=== PATIENT | female | born 1980 | race African-American/Black ===

== ENCOUNTER 2017-05-31 05:06 | Day surgery (SDC) | payer OTHER ==
[~2017-05-31] VITALS: Ht 172.7 cm; Wt 135.6 kg
--- NOTE | ~2017-05-31 | O ---
[facility] [place] [address] OPERATIVE REPORT Name: ANABELLA MATAMOROS Room #: DEP [facility] M.R.#: [id number] Admission: 05/31/17 Attend Phys: Raymon Huizar MD, F Discharge: 06/01/17 Date of : 80 Report #: [id number] THIS REPORT FOR: //name// CC: Floyd Huizar DATE OF SERVICE: 05/31/2017 PREOPERATIVE DIAGNOSES 1. Morbid obesity. 2. Gastroesophageal reflux disease. POSTOPERATIVE DIAGNOSES: 1. Morbid obesity. 2. Gastroesophageal reflux disease. PROCEDURE: Laparoscopic sleeve gastrectomy with EGD. ANESTHESIA: General endotracheal anesthesia and local anesthetic. ESTIMATED BLOOD LOSS: 5 mL. SPECIMEN: Lateral stomach. COMPLICATIONS: None appreciated. SURGEON: Raymon Huizar MD INDICATIONS FOR PROCEDURE: This is a 36-year-old female patient who stands 5 feet 8 inches and weighed 313 pounds at her last visit with a BMI of 47.6. Her current BMI is 45. Her maximum weight is 323 pounds. She has had difficulty with her weight mostly over the past 3-4 years related to a divorce. She has tried numerous weight loss programs, plans and medications with limited weight loss success. Any amount of weight she has lost, she has quickly regained plus additional weight after stopping each of the modalities. She has been cleared from a multidisciplinary standpoint and presents today for laparoscopic sleeve gastrectomy with EGD. OPERATIVE FINDINGS: EGD revealed a normal appearing esophagus down to the GE junction and Z line measured at 39 cm from the teeth. There was no evidence for hiatal hernia. The stomach and duodenum to the third portion showed no polyps, masses, diverticula, or ulcers. On retroflexion of the scope within the antrum, there was no hiatal hernia. Laparoscopically, the patient's stomach was enlarged as expected. The liver appeared relatively normal with mild steatotic changes. The colon and small [facility] [address] [place] [address] OPERATIVE REPORT Name: ANABELLA MATAMOROS Room #: [facility]#: [id number] Admission: 05/31/17 Attend Phys: Raymon Huizar MD, F Discharge: 06/01/17 Date of : 80 Report #: [id number] bowel in the surrounding area appeared otherwise normal. The spleen also appeared normal. The gastric sleeve staple line was 4 cm lateral/proximal to the pylorus, 3 cm lateral to the incisura, and 1 cm lateral to the GE junction. There was no evidence for staple line leak after applying Tisseel to the staple line. Immediately after doing so, the gastroscope was used to insufflate air into the sleeve and no air bubbles were seen forming within the glue. The excised stomach held over 1 liter of fluid. No other significant intraabdominal pathology was identified. At the conclusion of the operation, sponge, needle, and instrument counts were correct. No other significant intraabdominal pathology was identified. Upon creation of the sleeve, the staple line was measured at 4 cm from the pylorus. A 3 cm distance was present between the stapler and incisura. After removal of the stomach from the patient's body, it was filled with 1 liter of normal saline. Upon return to the abdominal cavity, the staple line was hemostatic. During removal of the endoscope, there was no bleeding within the stomach and there was no evidence for leak on the leak test described below. At the conclusion of the operation, the sponge, needle and instrument counts were correct. DESCRIPTION OF PROCEDURE IN DETAIL: After the benefits and risks of the procedure were explained to the patient which include but are not limited to risks of bleeding, infection, postoperative pain, postoperative expectations and risks of DVT and pulmonary embolus, informed consent was obtained. The patient was identified in the preoperative holding area. The patient was given IV antibiotics as documented in the chart in line with SCIP protocol. The patient was then taken to the operating room and was placed in the supine position. The patient was given IV sedation and was intubated without incident. SCDs were placed on the patient's bilateral lower extremities prior to induction of anesthesia. The patient had been placed in the modified low lying dorsal lithotomy position in stirrups on the beanbag. The beanbag and the patient were taped to the bed to secure the patient. A time-out was then performed to correctly identify the patient and procedure. An orogastric tube was placed by anesthesia. A bite block was placed and the fiberoptic EGD scope was passed into the patient's oropharynx, down the esophagus, into the stomach, and into the third portion of the duodenum. Findings are as noted above. The scope was slowly withdrawn into the antrum and the scope was retroflexed. The hiatus was visualized. The scope was then straightened and the end of the gastroscope was placed at the pylorus. The stomach was decompressed with the scope. The patient's abdomen was then prepped and draped in the standard sterile fashion with surgical prep. Local anesthetic was infiltrated into the skin and subcutaneous tissue in the left supraumbilical area where a sharp #15-blade scalpel was used to make a 5-mm incision. The 5-mm Visiport was placed intraperitoneally with the 5-mm 0-degree angled laparoscope. Pneumoperitoneum [address] [address] OPERATIVE REPORT Name: ANABELLA MATAMOROS Room #: DEP [facility].#: [id number] Admission: 05/31/17 Attend Phys: Raymon Huizar MD, F Discharge: 06/01/17 Date of : 80 Report #: [id number] was then achieved with insufflation of carbon dioxide to 15 mmHg. A 5-mm 30-degree angled laparoscope was then inserted. The 15-mm port was placed in the right supraumbilical area after local anesthetic was infiltrated into the skin and subcutaneous tissue and an appropriately sized incision was made. Two additional 5 mm ports were placed in the left abdomen after local anesthetic was infiltrated and incisions were made. All ports were placed under direct visualization. The patient was then placed in reverse Trendelenburg position. Local anesthetic was infiltrated into the skin and subcutaneous tissue in the subxiphoid area and a 5-mm incision was made through which a 5-mm obturator was passed into the abdominal cavity through the fascia to create a passageway for the Nima liver retractor. The retractor was placed to retract the liver anteriorly. The retractor was held in place with the Iron Cylinder Die Machine Operator apparatus. All abdominal adhesions were then taken down with blunt dissection, sharp dissection and judicious use of the ultrasonic dissector. The gastrosplenic ligament and short gastric vessels were then divided using the ultrasonic dissector with appropriate traction. Bleeding points were made hemostatic with the ultrasonic dissector. Dissection was carried proximally up to the left ivette of the diaphragm. The distal end point of dissection was then measured at 4 cm proximal to the pylorus. The short gastric vessels and gastrocolic ligaments were dissected to that level. The stomach was then rotated medially to visualize any posterior attachments/adhesions to the stomach. The adhesions were dissected with a combination of sharp dissection and use of the ultrasonic dissector. The endoscope was then slightly withdrawn to place it along the lesser curvature of the stomach. Suction was applied to the orogastric tube which was then removed, leaving the endoscope in place as a 34-Lithuanian bougie. The gastric sleeve was then created. Two black loads of the powered endoscopic PAYAM stapler buttressed with Lexis-Strips were used to staple and divide the stomach 4 cm proximal to the pylorus. Additional green loads buttressed with Lexis-strips were used to staple off the remainder of the stomach using the endoscope as the bougie. Care was taken to ensure that greater than 3 cm of space was present between the incisura and the staple line. The stomach was fully transected and placed in the right upper quadrant of the abdomen for later removal. The staple line of the sleeve was then clipped with Hemoclips along the staple line to provide hemostasis. Tisseel was applied to the entire length of the staple line with the Duplospray aerosolizer to fully ensure hemostasis. A leak test was performed next. The sleeve was insufflated with the endoscope which was slowly withdrawn. No air bubbles were seen in the Tisseel laparoscopically. Endoluminally, no bleeding was seen. The stomach was fully decompressed and the scope was slowly withdrawn. The Nima liver retractor was then loosened from the Iron Cylinder Die Machine Operator apparatus and it was removed without difficulty. [address] [address] OPERATIVE REPORT Name: ANABELLA MATAMOROS Room #: [facility]P [facility] M.R.#: [id number] Admission: 10/13/17 Attend Phys: Raymon Huizar MD, F Discharge: 06/01/17 Date of : 80 Report #: [id number] The stomach was then removed from the patient's body through the 15-mm port under direct visualization. A small amount stretching of the fascia was required to create an opening large enough for removal of the stomach. After its removal, the 15-mm port site fascial opening was closed with a 0-PDS suture using the Alpesh-William laparoscopic fascial closure device. All ports were removed after the abdominal cavity was desufflated. The fascial suture was tied. Interrupted subcuticular 4-0 Monocryl sutures and Dermabond were used to close all skin incisions. The patient tolerated the procedure well. The patient was awakened, extubated and taken to the recovery room in stable condition with no apparent intraoperative complications. <ELECTRONICALLY SIGNED> By: Raymon Huizar MD, FACS 06/02/17 2322 21 51 Raymon Huizar MD, FACS /nt
--- NOTE | ~2017-05-31 | S ---
[facility] [address] SURGICAL PATH RPT PROCEDURE Name: ANABELLA BECKWITH Room #: DE[facility] M.R.#: [id number] Admission: 05/31/17 Date of : 80 Discharge: 06/01/17 Report #: [id number] Path Case #: [id number] PATHOLOGY REPORT COLLECTION DATE: 05/31/2017 RECEIVED DATE: 05/31/2017 SUBMITTING PHYS: Dr. Raymon Huizar OTHER PHYS: Dr. Floyd Hamm SPECIMEN(S) RECEIVED: A.Gastric sleeve * * * * * * * * * * * * FINAL DIAGNOSIS: "Gastric sleeve", partial gastrectomy: - Gastric mucosa, submucosa and muscular wall with mucosa showing mild chronic inactive gastritis including reactive lymphoid aggregates showing germinal centers. - H. pylori immunohistochemical stain pending and will be reported as an addendum. (CLW:rema; 06/03/2017) COMMENT: The patient has a history of "Helicobacter pylori induced moderate active gastritis" from an antral endoscopic biopsy ([id number]). Clinical correlation is recommended. (CLW:rema; 06/03/2017) PATHOLOGIST: Belkis Acosta M.D. REPORT ELECTRONICALLY SIGNED BY: Belkis Acosta M.D. DATE/TIME: 06/03/2017 21:29 * * * * * * * * * * * * GROSS PATHOLOGY: Received in formalin labeled "Anabella Beckwith, gastric sleeve" is a partial gastrectomy specimen measuring 21.1 x 6.2 x 3.3 cm. The serosal surface is pink-warren and smooth and the specimen is closed with multiple staple lines. These staple lines are removed to reveal a pink-warren mucosal surface with unremarkable folding. No polyps are identified grossly. The gastric mucosa is red-brown and slightly hemorrhagic over a 7.5 x 5.0 cm area. Broth Mixer sections of the specimen including the hemorrhagic area are submitted in cassettes A1-A3. ([facility] [place] 06/02/2017) [address] [address] SURGICAL PATH RPT PROCEDURE Name: ANABELLA BECKWITH Room #: [facility] M..#: [id number] Admission: 05/31/17 Date of : 80 Discharge: 06/01/17 Report #: [id number] Path Case #: [id number] CLINICAL HISTORY: Morbid obesity. INITIAL CPT CODE(S): A; 02957, 73680 Professional services performed by [facility] at [address], [place] [address] Technical services performed by [facility] at [address] [place] [address], [facility] [address] [place] [address]. [facility] [address] [place] [address] PHONE: [phone] DIRECTOR: Richi Archer M.D. * * * END OF REPORT * * *
[~2017-05-31 05:06] MED LIST: CEPHALEXIN 500500 M3 PO; FARXIGA10 MG PO; MEDROLDOSEPACK PO; PROAIR HFA8.5 GM INH; TESSALON PERLE100 MG PO; VITAMIN B-12500 MC5 SUBLING
[2017-05-31 08:00] VITALS: BP 116/67
[2017-05-31 16:00] VITALS: BP 125/75
[2017-05-31 19:34] VITALS: BP 106/65
[2017-06-01 00:12] VITALS: BP 103/48
[2017-06-01 04:24] VITALS: BP 103/99
[2017-06-01 06:55] LABS: ABSOLUTE NEUTROPHILS 8.3 thou/uL (1.4-8.2); BASOPHILS 0.2 % (0.0-2.0); EOSINOPHILS 0.1 % (0.0-3.0); HEMATOCRIT 37.1 % (37.0-47.0); LYMPHOCYTES 12.5 % (24.0-44.0); MCH 25.9 pg (26.0-34.0); MCHC 32.3 g/dL (28.0-37.0); MCV 80.4 fL (80.0-100.0); MONOCYTES 9.7 % (1.0-8.0); PLATELET COUNT 206 thou/uL (150-400); POLYS 77.5 % (36.0-66.0); RBC 4.61 mil/uL (4.20-5.00); RDW 14.8 % (10.5-14.5); WBC 10.8 thou/uL (4.0-11.0)
[2017-06-01 07:08] LABS: MANUAL DIFF NO
[2017-06-01 07:26] LABS: CALCIUM 8.6 mg/dL (8.5-10.1); CREATININE 0.8 mg/dL (0.6-1.0); POTASSIUM 4.2 mmol/L (3.5-5.1)
[2017-06-01 08:06] VITALS: BP 117/63
[2017-06-01] MEDS ORDERED: ZOFRAN ODT4 MG PO (10:31)
[2017-06-01] MEDS ORDERED: HYDROCODONE-ACE15 ML PO (10:31)
[2017-06-01 13:36] VITALS: BP 117/63
== END 2017-06-01 15:20 | disposition home or self-care (01) ==
LOC: OR 05:06 → TBA 05:06 → OR 10:20 → GI 12:36 → 3W 14:05 → OR 14:08 → EDSTATUS 15:32 → OR 15:34
PROVIDERS: Surgery
DX: E66.01 Morbid (severe) obesity due to excess calories (principal); K21.9 Gastro-esophageal reflux disease without esophagitis; Z68.42 Body mass index [BMI] 45.0-49.9, adult
CPT/HCPCS: 10779; 50010; 50101; 50222; 50249; 50386; 50555; 50739; 50740; 50962; 51437; 52182; 52265; 53307; 53311; 54022; 54118; 56462; 56525; 56526; 57092; 62110; 62900; 70005